=== PATIENT | female | born 1990 | race Caucasian/White ===

== ENCOUNTER 2017-01-17 16:32 | Emergency (ER) | payer MEDICAID ==
[2017-01-17 16:51] VITALS: BP 138/78
--- OUTSIDE RECORDS SUMMARY | 2017-01-17 17:49 | XMS REPORT | Continuity of Care Document ---
:1990 Author Organization [facility] [place] [address] Care Team Providers Name Role Phone Unavailable Primary Care Provider Unavailable Source Comments This disclosure is being made pursuant to the Stream Tags program and maynot contain all information available regarding this patient.[facility] Active Allergies and Adverse Reactions Not on File Current Medications Be aware that medications may not be up to date as of this document. Alwaysverify current medications with the patient. Not on file Active Problems Not on file Social History Tobacco Use Types Packs/Day Years Used Date Never Assessed Plan of Care Health Maintenance Due Date Last Done Comments HPV Vaccine (9-26YO) (1 of 3 - Female/Unknown 3 Dose 2003 Series) Chlamydia Screening 2008 Retired-Tetanus Vaccine Adult 2011 Pap Smear 2013 Retired-INFLUENZA VACCINE 04/24/2015 Results from Last 3 Months Not on file
--- OUTSIDE RECORDS SUMMARY | 2017-01-17 17:49 | XMS REPORT | Continuity of Care Document ---
:1990 Author Organization [facility] ([facility]) Address [address] [place] [address] Phone [phone] Care Team Providers Name Role Phone Austin Knowles Primary Care Provider [phone] Source Comments This disclosure is being made pursuant to the Care Everywhere program, applicable federal and state laws, and may not contain all informaitonavailable regarding this patient.[facility] ([facility]) Active Allergies and Adverse Reactions Not on File Current Medications Not on file Active Problems Not on file Social History Tobacco Use Types Packs/Day Years Used Date Never Assessed Plan of Care Health Maintenance Due Date Last Done Comments Hepatitis B Vaccine (1 of 3 - Primary Series) 1992 HPV Vaccine (1 of 3 - Female/Unknown 3 Dose Series) 2003 Tdap Vaccine 2003 Cervical Cancer Screening 2010 Lipid Disorder Screening 2010 MMR Vaccine 2010 Td Vaccine 2010 Varicella Vaccine (1 of 2 - Adult - No Evidence of 2010 Immunity) Influenza Vaccine: Seasonal (#1) 03/24/2016 Results from Last 3 Months Not on file
--- NOTE | 2017-01-17 18:28 | ERNOTE ---
Back Pain ER HPI Date of Service: 01/17/17 Presenting Symptoms: injury/pain to back, other - also c/o pain in foot, fell going to bathroom, has seen doctor in [facility] Time Seen by Provider: 01/17/17 17:33 Source: patient Exam Limitations: no limitations Allergies/Adverse Reactions: Allergies No Known Allergies Allergy (Unverified 01/17/17 16:51) Home Medications: HOME MEDICATIONS ALPRAZolam [Xanax] 1 mg PO TID PRN 01/17/17 [Last Taken Unknown] Cyclobenzaprine HCl [Flexeril] 10 mg PO TID PRN #30 tab 01/17/17 [Last Taken Unknown] Gabapentin [Gralise] 600 mg PO TID 01/17/17 [Last Taken Unknown] Lurasidone HCl [Latuda] 40 mg PO DAILY 01/17/17 [Last Taken Unknown] Sertraline HCl [Zoloft] 50 mg PO DAILY 01/17/17 [Last Taken Unknown] Tramadol HCl [Rybix Odt] 50 mg PO TID #20 tab.rapdis 01/17/17 [Last Taken Unknown] Timing: Reports: constant Quality/Severity: Reports: moderate, dullness, throbbing Location of pain: Reports: lower back, other - right foot Activities at Onset: Reports: activity Recent Injury?: Reports: yes Possible Precipitating Factor: Reports: fall/near fall Modifying Factors - (Improves): Reports: nothing, movement to right Modifying Factors - (Worsens): Reports: movement to right, movement to left Associated Symptoms: Reports: none Prior Treament: Reports: recently seen, treated by physician Review of Systems - Review of Systems Constitutional: Present: no symptoms reported EYE: Present: no symptoms reported ENT: Present: no symptoms reported Respiratory: Present: no symptoms reported Cardiology: Present: no symptoms reported Gastrointestinal/Abdominal: Present: no symptoms reported Genitourinary: Present: no symptoms reported Musculoskeletal: Present: back pain, muscle stiffness, joint pain, other - right foot pain Skin: Present: no symptoms reported Neurological: Present: no symptoms reported Endocrine: Present: no symptoms reported Hematologic/Lymphatic: Present: no symptoms reported Psych: Present: no symptoms reported All Other Systems: All systems neg except as marked - Patient's Past Medical History Patient History - Medical: No pertinent hx, Anxiety, Depression Patient History - Cardiac/Respiratory: No pertinent hx Patient History - Cancer: No Hx of Cancer Patient History - Surgical Procedures: No surgical history Patient History - Other: None - Family History Family History:: no untoward family reactions to anesthesia, no familial bleeding tendencies, no family history of clotting disorders, no family history of premature - Social History Living Situations: home Psych History: Hx of Anxiety, Hx of Depression, Hx of Bipolar Disorder, Hx of Schizophrenia Does anyone smoke in the home?: Yes Smoking Status: Current every day smoker Have you smoked in the past 12 months: Yes Do you dip or chew tobacco: Yes Alcohol Use: none Drug Use: none - Immunizations Immunizations Up to Date: Yes Hx Pneumococcal Vaccination: Yes History of Influenza Vaccine: Yes Physical Exam - Physical Exam General Appearance: Present: wd/wn, alert, moderate distress Eye Exam: Normal inspection: bilateral, PERRL: bilateral, EOMI: bilateral Ears, Nose, Throat: Present: normal ENT inspection Neck: Present: normal inspection, nontender Respiratory: Present: no respiratory distress, normal breath sounds, no accessory muscle use, chest nontender, lungs clear Cardiovascular/Chest: Present: regular rate, rhythm, no murmur, normal peripheral pulses Peripheral Pulses: N=norm/S=strong/W=weak/B=bound/A=absent: Carotid (R): Normal , Carotid (L): Normal, Radial (R): Normal, Radial (L): Normal, Femoral (R): Normal, Femoral (L): Normal, Dorsalis-pedis (R): Normal, Dorsalis-pedis (L): Normal Gastrointestinal/Abdominal: Present: normal bowel sounds, nontender, nondistended, soft, no organomegaly Back Exam: Present: vertebral tenderness, decreased range of motion, muscle spasm Extremity Exam: Present: other - `pain and swelling right lateral foot ED Progress - Vital Signs Vital Signs: Vital Signs 01/17/17 16:46 Temperature 36.2 C L Pulse Rate 95 Respiratory 12 Rate Blood Pressure 138/78 O2 Sat by Pulse 100 Oximetry - X-Ray X-Ray #2 X-Ray: foot - no apparrent fracture of lumbar spine, no apparrent fracture of right foot - Progress/Reassessment Chief Complaint: Back Pain Departure Clinical Impression: Back complaints, Right foot sprain - Departure Instructions: Mid-Back Strain With Rehab-SportsMed Referrals: Austin Knowles DO [Primary Care Provider] - Prescriptions: Cyclobenzaprine HCl [Flexeril] 10 mg PO TID PRN #30 tab PRN Reason: MUSCLE SPASMS Tramadol HCl [Rybix Odt] 50 mg PO TID #20 tab.smith
== END 2017-01-17 18:30 | disposition home or self-care (01) ==
LOC: ER 16:32
DX: M54.9 Dorsalgia, unspecified (principal); S93.601A Unspecified sprain of right foot, initial encounter; W18.11XA Fall from or off toilet without subsequent striking against object, initial encounter; Y93.89 Activity, other specified; Y92.9 Unspecified place or not applicable